=== PATIENT | female | born 1970 | race Two or more races ===

== ENCOUNTER 2017-05-25 22:53 | Emergency (ER) | payer MEDICAID ==
[~2017-05-25] VITALS: Ht 162.6 cm; Wt 86.6 kg
[2017-05-25 23:08] VITALS: BP 144/94
[2017-05-25] MEDS ORDERED: IBUPROFEN600 MG ORAL (23:17)
[2017-05-25] MEDS ORDERED: AMOXICILLIN500 MG ORAL (23:17)
--- NOTE | 2017-05-25 23:19 | Emergency Room Report ---
History of Present Illness General Chief Complaint: Toothache Source: Patient Present Illness HPI Patient presents with left upper dental pain and swelling of the upper facial region Pain has been ongoing for the past one day However she noticed some increased swelling later this evening Denies any fevers or chills denies any neck pain or photophobia denies any trismus Pain is 5 out of 10 localized to the left upper dental region Denies any recent trauma Allergies: Coded Allergies: No Known Allergies (Unverified , 05/25/17) Patient History Past Medical History: see triage record Pertinent Family History: none Last Menstrual Period: 04/27/2017 Now: No : 3 Para: 3 Reviewed Nursing Documentation: PMH: Agreed; PSxH: Agreed Nursing Documentation-PMH Past Medical History: No Stated History Review of Systems All Other Systems: negative except mentioned in HPI Physical Exam Vital Signs Date Time Temp Pulse Resp B/P (MAP) Pulse Ox O2 Delivery O2 Flow Rate FiO2 05/25/17 22:59 98.1 86 15 144/94 96 Room Air 98.1 Sp02 EP Interpretation: reviewed, normal General Appearance: well appearing, no apparent distress Head: normocephalic, atraumatic Eyes: bilateral eye PERRL, bilateral eye EOMI ENT: normal pharynx, no angioedema, other - Left upper molar region patient has a fractured tooth with filling that's visible, the upper gingival area is also mildly swollen no trismus Neck: full range of motion, supple Gastrointestinal: non tender, soft Musculoskeletal: normal inspection, back normal Neurologic: alert, oriented x3, responsive Skin: normal color, no rash Lymphatic: normal inspection Medical Decision Making Diagnostic Impression: Primary Impression: dental decay ER Course Patient shows signs of dental decay Given the swelling there is also concern for abscess formation Patient was provided with initial antibiotic here and will have close follow-up at this time no signs of any trismus or other acute emergent pathology Last Vital Signs Date Time Temp Pulse Resp B/P (MAP) Pulse Ox O2 Delivery O2 Flow Rate FiO2 05/25/17 22:59 98.1 86 15 144/94 96 Room Air 98.1 Status: improved Disposition: HOME, SELF-CARE Condition: Improved Scripts Amoxicillin* (AMOXIL*) 500 Mg Capsule 500 MG ORAL THREE TIMES A DAY, #21 CAP Prov: Viktoria Samuel DO 05/25/17 Ibuprofen* (MOTRIN*) 600 Mg Tablet 600 MG ORAL Q8H PRN for For Pain, #20 TAB 0 Refills Prov: Viktoria Samuel DO 05/25/17 Patient Instructions: Dental Pain, Dental Abscess, [id number] Additional Instructions: Patient is provided with the discharge instructions notified to follow up with primary doctor in the next 2-3 days otherwise return to the er with any worsening symptoms. Please note that this report is being documented using [employer] technology. This can lead to erroneous entry secondary to incorrect interpretation by the dictating instrument. Viktoria Samuel DO May 25, 2017 23:19
[2017-05-25 23:27] VITALS: BP 144/94
== END 2017-05-25 23:27 | disposition home or self-care (01) ==
LOC: EMR 23:25
DX: K02.9 Dental caries, unspecified (principal)
CPT/HCPCS: 99284

== ENCOUNTER 2017-06-12 21:25 | Emergency (ER) | payer MEDICAID ==
[~2017-06-12] VITALS: Ht 162.6 cm; Wt 90.7 kg
[~2017-06-12 21:25] MED LIST: AMOXICILLIN500 MG ORAL; IBUPROFEN600 MG ORAL
[2017-06-12 21:41] VITALS: BP 138/86
[2017-06-12 21:50] VITALS: BP 133/81
[2017-06-12] MEDS ORDERED: MIRALAX17 G2 ORAL (22:04)
[2017-06-12] MEDS ORDERED: ANUSOL-HC25 MG RECTAL (22:04)
--- NOTE | 2017-06-12 22:05 | Emergency Room Report ---
History of Present Illness General Chief Complaint: General Complaint Source: Patient Present Illness [facility] This is a 46-year-old female with no cerumen past medical history. She presents with chief complaint of rectal bleeding. She been constipated for last 4 days. Now she noted when she try to have a bowel movement she noticed some blood. Initially around the stool but now trickling blood. No pain. No nausea no vomiting. No recent pain medication. She is taking amoxicillin for dental infection. Allergies: Coded Allergies: No Known Allergies (Unverified , 05/25/17) Patient History Past Medical History: see triage record, old chart reviewed Past Surgical History: other Pertinent Family History: none Social History: Denies: smoking Last Menstrual Period: 2 weeks ago Now: No : 3 Para: 3 Immunizations: other Reviewed Nursing Documentation: PMH: Agreed; PSxH: Agreed Nursing Documentation-PMH Past Medical History: No Stated History Review of Systems Eye: Denies: eye pain, blurred vision ENT: Denies: ear pain, nose congestion, throat swelling Respiratory: Denies: cough, shortness of breath Cardiovascular: Denies: chest pain, palpitations Gastrointestinal: Denies: abdominal pain, diarrhea, nausea, vomiting Musculoskeletal: Denies: back pain, joint pain Skin: Denies: rash Neurological: Denies: headache, numbness Endocrine: Denies: increased thirst, increased urine Hematologic/Lymphatic: Denies: easy bruising All Other Systems: negative except mentioned in HPI Physical Exam Vital Signs Date Time Temp Pulse Resp B/P (MAP) Pulse Ox O2 Delivery O2 Flow Rate FiO2 06/12/17 21:41 98.7 83 18 138/86 98 Room Air 98.8 vitals normal Sp02 EP Interpretation: reviewed, normal General Appearance: well appearing, no apparent distress, alert Head: normocephalic, atraumatic Eyes: bilateral eye PERRL, bilateral eye EOMI ENT: hearing grossly normal, normal pharynx Neck: full range of motion, supple, no meningismus Respiratory: chest non-tender, lungs clear, normal breath sounds Cardiovascular #1: regular rate, rhythm, no murmur Gastrointestinal: normal bowel sounds, non tender, no mass, no organomegaly, no bruit, non-distended Rectal: normal rectal tone, other - when I ask her to bear down, I saw a small internal hemorrhoid. no gross blood on rectal exam. Musculoskeletal: back normal, gait/station normal, normal range of motion Psychiatric: mood/affect normal Skin: warm/dry Medical Decision Making Diagnostic Impression: Primary Impression: Hemorrhoid Qualified Codes: K64.9 - Unspecified hemorrhoids Additional Impression: Rectal bleeding ER Course Patient with internal hemorrhoid with small amount of rectal bleeding. No thrombosis. No instability to her blood pressure. We'll discharge home. Last Vital Signs Date Time Temp Pulse Resp B/P (MAP) Pulse Ox O2 Delivery O2 Flow Rate FiO2 06/12/17 21:41 98.7 83 18 138/86 98 Room Air 98.8 Status: unchanged Disposition: HOME, SELF-CARE Condition: Stable Scripts Hydrocortisone Acetate* (ANUSOL-HC*) 25 Mg Supp.rect 1 SUPP RECTAL TWICE A DAY, #14 SUPP Prov: CARINE VARGAS M.D. 06/12/17 Polyethylene Glycol 3350* (MIRALAX*) 17 Gm Powd.pack 17 GM ORAL DAILY, #7 PACKET Prov: CARINE VARGAS M.D. 06/12/17 Additional Instructions: Increase water and fiber. Follow-up your doctor in 7 days. If not better, you may need a referral to see a colorectal surgeon. Return if symptom worsen. CARINE VARGAS M.D. Jun 12, 2017 22:05
== END 2017-06-12 22:15 | disposition home or self-care (01) ==
LOC: EMR 22:11
DX: K64.8 Other hemorrhoids (principal)
CPT/HCPCS: 99284

== ENCOUNTER 2017-09-10 06:55 | Emergency (ER) | payer SELFPAY ==
[~2017-09-10] VITALS: Ht 162.6 cm; Wt 89.4 kg
[~2017-09-10 06:55] MED LIST changes: +ANUSOL-HC25 MG RECTAL; +MIRALAX17 G2 ORAL
[2017-09-10] MEDS ORDERED: NKM (07:10)
[2017-09-10 07:17] VITALS: BP 148/94
[2017-09-10] MEDS ORDERED: BACTROBAN CR1 APPLIC TOPIC (07:58)
--- NOTE | 2017-09-10 08:05 | Emergency Room Report ---
History of Present Illness General Chief Complaint: Skin Rash/Abscess Source: Patient Present Illness HPI 2-3 days rash right ear and now also right cheek. No similar history. Unsure how started. No fever. No trauma, no fever, no shortness of breath, no chest pain, no nausea, no vomiting, no diarrhea, no abdominal pain, no syncope, LOC, dizziness, lightheadedness, headache. Allergies: Coded Allergies: No Known Allergies (Unverified , 05/25/17) Patient History Last Menstrual Period: 09/09/17 Nursing Documentation-[facility] Past Medical History: No Stated History Review of Systems Constitutional: Denies: fever Eye: Denies: acuity changes Respiratory: Denies: cough, shortness of breath Cardiovascular: Denies: chest pain Gastrointestinal: Denies: nausea, vomiting Skin: Denies: rash Neurological: Denies: headache Physical Exam Vital Signs Date Time Temp Pulse Resp B/P (MAP) Pulse Ox O2 Delivery O2 Flow Rate FiO2 09/10/17 07:07 98.3 78 18 148/94 97 Room Air 98.2 General Appearance: well appearing, no apparent distress Head: normocephalic, atraumatic ENT: hearing grossly normal, normal voice Neck: full range of motion, supple Respiratory: no respiratory distress, speaking full sentences Musculoskeletal: no calf tenderness Neurologic: alert, normal gait Psychiatric: mood/affect normal Skin: no rash, other - impetigo small patch to lower right ear and right cheek Medical Decision Making Diagnostic Impression: Primary Impression: Impetigo Last Vital Signs Date Time Temp Pulse Resp B/P (MAP) Pulse Ox O2 Delivery O2 Flow Rate FiO2 09/10/17 07:17 98.2 87 18 148/94 97 Room Air 98.2 Disposition: HOME, SELF-CARE Condition: Stable Scripts Mupirocin Calcium (Bactroban) 15 Gm Cream..g. 1 APPLIC TOPIC THREE TIMES A DAY for 7 Days, GM Prov: Salvador Peters M.D. 09/10/17 Referrals: [facility],REFERRING (PCP) Patient Instructions: Scarlett, Adult Salvador Peters M.D. Sep 10, 2017 08:05
[2017-09-10 08:20] VITALS: BP 130/80
== END 2017-09-10 08:25 | disposition home or self-care (01) ==
LOC: EMR 07:40
DX: L01.00 Impetigo, unspecified (principal)
CPT/HCPCS: 99283

== ENCOUNTER 2017-12-02 15:08 | Emergency (ER) | payer MEDICAID ==
[~2017-12-02] VITALS: Ht 162.6 cm; Wt 90.7 kg
[~2017-12-02 15:08] MED LIST changes: +BACTROBAN CR1 APPLIC TOPIC; +NKM
[2017-12-02 15:45] VITALS: BP 152/94
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
[2017-12-02] MEDS ORDERED: Isovue-300 100ml vial INJ PRN (16:30)
[2017-12-02 16:56] LABS: APPEARANCE,URINE CLEAR; BASOPHILS % (AUTO) 1.1 % (0.0-2.0); BILIRUBIN, URINE NEGATIVE (NEGATIVE); COLOR,URINE PALE YELLOW; EOSINOPHILS % (AUTO) 5.8 % (0.0-3.0); GLUCOSE, URINE (UA) NEGATIVE (NEGATIVE); HEMATOCRIT 35.9 % (37.0-47.0); HEMOGLOBIN 11.9 G/DL (12.0-16.0); KETONES,URINE NEGATIVE (NEGATIVE); LEUKOCYTE ESTERASE ,URINE 1+ (NEGATIVE); LYMPHOCYTES % (AUTO) 41.1 % (20.0-45.0); MEAN CORPUSCULAR VOLUME 80 FL (80-99); MONOCYTES % (AUTO) 6.1 % (1.0-10.0); NEUTROPHILS % (AUTO) 45.9 % (45.0-75.0); NITRITE,URINE NEGATIVE (NEGATIVE); PH,URINE 5 (4.5-8.0); PLATELET COUNT 421 K/UL (150-450); PROTEIN,URINE NEGATIVE (NEGATIVE); RED BLOOD COUNT 4.46 M/UL (4.20-5.40); RED CELL DISTRIBUTION WIDTH 13.5 % (11.6-14.8); UROBILINOGEN,URINE NORMAL MG/DL (0.0-1.0); WHITE BLOOD COUNT 7.7 K/UL (4.8-10.8)
[2017-12-02 17:01] LABS: ANION GAP 7 mmol/L (5-15); BLOOD UREA NITROGEN 15 mg/dL (7-18); CALCIUM 9.5 MG/DL (8.5-10.1); CARBON DIOXIDE 29 MMOL/L (21-32); CHLORIDE 103 MMOL/L (98-107); CREATININE 0.8 MG/DL (0.55-1.30); POTASSIUM 3.6 MMOL/L (3.5-5.1); SODIUM 139 MMOL/L (136-145)
[2017-12-02 17:05] LABS: ALANINE AMINOTRANSFERASE 15 U/L (12-78); ALBUMIN 3.8 G/DL (3.4-5.0); ALBUMIN/GLOBULIN RATIO 0.8 (1.0-2.7); ALKALINE PHOSPHATASE 86 U/L (46-116); ASPARTATE AMINO TRANSFERASE 11 U/L (15-37); BILIRUBIN,TOTAL 0.3 MG/DL (0.2-1.0)
[2017-12-02 19:00] VITALS: BP 143/80
[2017-12-02] MEDS ORDERED: AMOXICILLIN500 MG ORAL (19:24)
[2017-12-02] MEDS ORDERED: ROBAXIN500 MG PO (19:24)
[2017-12-02] MEDS ORDERED: TYLENOL EXTRA500 MG ORAL (19:24)
[2017-12-02] MEDS ORDERED: LIDOCAINE700 M1 TP (19:24)
[2017-12-02 19:45] VITALS: BP 137/88
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
== END 2017-12-02 19:45 | disposition home or self-care (01) ==
LOC: EMR 16:09
DX: S43.402A Unspecified sprain of left shoulder joint, initial encounter (principal); S30.1XXA Contusion of abdominal wall, initial encounter; V49.59XA Passenger injured in collision with other motor vehicles in traffic accident, initial encounter; Y92.410 Unspecified street and highway as the place of occurrence of the external cause; R07.9 Chest pain, unspecified; K08.89 Other specified disorders of teeth and supporting structures; Z91.018 Allergy to other foods
CPT/HCPCS: 36415; 73030; 74177; 80053; 81003; 83690; 85025; 96360; 99284; Q9967